=== PATIENT | female | born 1995 | race Two or more races ===

== ENCOUNTER 2017-12-09 22:34 | Emergency (ER) | payer OTHER ==
[~2017-12-09] VITALS: Ht 167.6 cm; Wt 73.9 kg
[2017-12-09 22:40] VITALS: BP 139/90
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
[2017-12-09] MEDS ORDERED: HYDROCODON-ACE1 EA15 ORAL (23:44)
[2017-12-09] MEDS ORDERED: IBUPROFEN600 MG ORAL (23:44)
[2017-12-10 00:05] VITALS: BP 139/90
--- NOTE | 2017-12-10 11:38 | Diagnostic Imaging Report ---
Indication: Neck Pain Findings: 5 views of the cervical spine were obtained. There is no acute fracture identified. Alignment is normal. The open-mouth odontoid view shows an intact dens and good alignment of the lateral masses with respect to the body of C2. There is no soft tissue swelling. The neural foramina are widely patent bilaterally. Impression: Negative cervical spine examination.
--- NOTE | 2017-12-10 11:41 | Diagnostic Imaging Report ---
Indication: Right shoulder pain Findings: 3 views of the right shoulder were obtained. No acute fractures, malalignment, erosions or periostitis are identified. Soft tissues are unremarkable. Impression: Negative for acute injury
== END 2017-12-10 00:05 | disposition home or self-care (01) ==
LOC: EDBD 22:34 → EMR 22:44
DX: S16.1XXA Strain of muscle, fascia and tendon at neck level, initial encounter (principal); S00.83XA Contusion of other part of head, initial encounter; S46.911A Strain of unspecified muscle, fascia and tendon at shoulder and upper arm level, right arm, initial encounter; V43.52XA Car driver injured in collision with other type car in traffic accident, initial encounter; Y92.410 Unspecified street and highway as the place of occurrence of the external cause
CPT/HCPCS: 72052; 99283